=== PATIENT | female | born 1950 | race Caucasian/White ===

== ENCOUNTER → 2017-09-14 | Outpatient (CLI) | payer MEDICARE, OTHER ==
[2017-09-14 13:37] LABS: Blood Urea Nitrogen 9 mg/dL (7-17)
--- NOTE | 2017-09-14 15:44 | CT ---
EXAMINATION TYPE: CT abdomen pelvis w con DATE OF EXAM: 09/14/2017 COMPARISON: NONE HISTORY: 67-year-old female with abnormal liver function test and low white blood cell count. TECHNIQUE: Contiguous axial scanning of the abdomen and pelvis following administration of 100 ml Omn ipaque 300 IV contrast. Delayed images through the kidneys and coronal/sagittal reconstructions perf ormed. CT DLP: 361.4 mGycm Automated exposure control for dose reduction was used. FINDINGS: Heart is normal size without pericardial effusion. Small calcified lymph nodes lower retroesophageal region. Fat-containing left-sided Bochdalek hernia. Small amount of focal fat along the anterior falciform ligament. No other focal liver lesion seen. No biliary ductal dilatation. Portal venous system is patent. Prominent junctional fold within the gallbladder. No abnormal gallbladder distention. Adrenal glands, kidneys, spleen with anterior splenule, and atrophic pancreas show no gross abnormali ty. Moderate atherosclerotic calcifications within the abdominal aorta and iliac arteries without aneurys m. No dilated small bowel, free fluid, or free air. No mesenteric or retroperitoneal lymphadenopathy see n. There is moderate stool burden on the right with oral contrast extending to the distal transverse colon. No pericolonic inflammatory change. Bladder urine distended. Uterus is visualized with the 1.8 cm left uterine body calcified fibroid. Wero th ovaries are visualized. No abnormal fluid collection the pelvis or pelvic lymphadenopathy. The anus shows some mucosal enhancement and an unusual curved course, axial image 69 with some possib le soft tissue distortion here, coronal image 52. No abnormal fluid collection in the pelvis or pelvi c lymphadenopathy seen. Bones: Degenerative changes at L5-S1 with a trace grade 1 anterolisthesis. IMPRESSION: 1. APPARENT MUCOSAL HYPEREMIA AT THE ANUS AND SOME TISSUE DISTORTION. CORRELATE FOR ANY FOCAL SYMPTOM S/INFLAMMATION HERE. NO OBVIOUS MASS IS SEEN. PHYSICAL EXAM MAY BE HELPFUL. 2. FIBROID UTERUS.
== END | disposition home or self-care (01) ==
LOC: RADCTMAIN 13:04
PROVIDERS: ATTEND Internal Medicine Hematology & Oncology
DX: D25.9 Leiomyoma of uterus, unspecified (principal); K62.89 Other specified diseases of anus and rectum
CPT/HCPCS: 82565; 84520; 74177; 36415; Q9967